=== PATIENT | female | born 1950 | race Hispanic/Latino ===

== ENCOUNTER 2024-06-23 16:45 | Emergency (ER) | payer MEDICARE ==
[~2024-06-23] VITALS: Ht 172.7 cm; Wt 59.0 kg
[2024-06-23 17:08] LABS: BASOPHILS # (AUTO) 0.07 K/uL (0.00-0.20); BASOPHILS % (AUTO) 0.7 % (0.0-5.0); EOSINOPHILS # (AUTO) 0.11 K/uL (0.00-0.70); EOSINOPHILS % (AUTO) 1.2 % (0.0-8.0); HEMATOCRIT 36.9 % (36-48); IMMATURE GRANULOCYTE ABSOLUTE 0.03 K/uL (0-1); LYMPHOCYTES # (AUTO) 1.9 K/uL (1.0-4.8); LYMPHOCYTES % (AUTO) 20.4 % (21.0-51.0); MEAN CORPUSCULAR HGB CONC 33.3 g/dL (32.0-36.0); MEAN CORPUSCULAR VOLUME 96.1 fL (79-99); MONOCYTES # (AUTO) 0.7 K/uL (0.1-1.0); MONOCYTES % (AUTO) 7.7 % (3.0-13.0); NEUTROPHILS # (AUTO) 6.7 K/uL (1.8-7.7); NEUTROPHILS % (AUTO) 69.7 % (40.0-77.0); PLATELET COUNT (AUTO) 175 K/uL (130-400); RED BLOOD CELL COUNT(AUTO) 3.84 MIL/uL (4.00-5.50); RED CELL DISTRIBUTION WIDTH 11.8 % (11.0-15.5); WHITE BLOOD COUNT (AUTO) 9.5 K/uL (4.8-10.8)
[2024-06-23 17:18] LABS: CREATININE 1.1 mg/dL (0.5-1.0)
--- NOTE | 2024-06-23 17:25 | HMCIMG ---
PORTABLE CHEST RADIOGRAPH INDICATION: Fatigue COMPARISON: None FINDINGS: Heart size is normal. The pulmonary vascularity and shelly appear normal. No abnormal pulmonary parenchymal opacity or consolidation identified. No significant pleural effusion noted. No pneumothorax detected. IMPRESSION: No radiographic evidence for any acute cardiopulmonary process.
[2024-06-23 17:28] LABS: RAPID GROUP A STREP negative (NEGATIVE)
[2024-06-23 17:39] LABS: COVID19 (SARS ANTIGEN RAPID) PRESUMPTIVE NEGATIVE (NEGATIVE); INFLUENZA TYPE A Negative For Type A (NEGATIVE); INFLUENZA TYPE B Negative For Type B (NEGATIVE)
--- NOTE | 2024-06-23 18:39 | ERN ---
General Chief Complaint: Other Problems Stated Complaint: DROWSY Time Seen by MD: 16:47 Source: patient History of Present Illness Initial Comments In his is a 73-year-old female coming in to be evaluated for generalized body weakness. Per at bedside patient has been having this more often for a of weeks and along with this patient was not eating as much Allergies: Coded Allergies: Penicillins (Unverified Allergy, Unknown, RASH, 05/30/24) Past Medical History Past Medical History: Dementia, High Cholesterol, Hypothyroid Past Surgical History: Cholecystectomy Results Laboratory and Microbiology Lab and Micro Result Laboratory Tests Test 06/23/24 17:02 06/23/24 17:11 White Blood Count 9.5 K/uL (4.8-10.8) Red Blood Count 3.84 MIL/uL (4.00-5.50) L Hemoglobin 12.3 g/dL (12.0-16.0) Hematocrit 36.9 % (36-48) Mean Corpuscular Volume 96.1 fL (79-99) Mean Corpuscular Hemoglobin 32.0 pg (27.0-33.0) Mean Corpuscular Hemoglobin Concent 33.3 g/dL (32.0-36.0) Red Cell Distribution Width 11.8 % (11.0-15.5) Platelet Count 175 K/uL (130-400) Mean Platelet Volume 10.7 fL (7.5-10.5) H Immature Granulocyte % (Auto) 0.3 % (0-1) Neutrophils (%) (Auto) 69.7 % (40.0-77.0) Lymphocytes (%) (Auto) 20.4 % (21.0-51.0) L Monocytes (%) (Auto) 7.7 % (3.0-13.0) Eosinophils (%) (Auto) 1.2 % (0.0-8.0) Basophils (%) (Auto) 0.7 % (0.0-5.0) Neutrophils # (Auto) 6.7 K/uL (1.8-7.7) Lymphocytes # (Auto) 1.9 K/uL (1.0-4.8) Monocytes # (Auto) 0.7 K/uL (0.1-1.0) Eosinophils # (Auto) 0.11 K/uL (0.00-0.70) Basophils # (Auto) 0.07 K/uL (0.00-0.20) Absolute Immature Granulocyte (auto 0.03 K/uL (0-1) Nucleated Red Blood Cells 0.0 % (0.0-0.19) Sodium Level 141 mmol/L (136-145) Potassium Level 4.0 mmol/L (3.5-5.1) Chloride Level 102 mmol/L (101-111) Carbon Dioxide Level 33 mmol/L (21-32) H Blood Urea Nitrogen 17 mg/dL (7-18) Creatinine 1.1 mg/dL (0.5-1.0) H Glomerular Filtration Rate Calc 53 mL/min (>90) Random Glucose 96 mg/dL (70-105) Total Calcium 9.5 mg/dL (8.5-10.1) Troponin I High Sensitivity 4 ng/L (4-50) Influenza Type A Antigen Negative For Type A Influenza Type B Antigen Negative For Type B SARS-CoV-2 Antigen (Rapid) PRESUMPTIVE NEGATIVE Group A Streptococcus Rapid negative (NEGATIVE) EKG/XRAY/US/CT/MRI EKG Comment 06/23/2024 time 5:08 p.m. Ventricular rate [address] wave elevation or depression MDM MDM: Differential diagnosis: Generalized body weakness, worsening dementia, Rationale: Tests considered and ordered secondary to shared decision making include: Previous outside records reviewed: Old ER visits. Risk of complication and/or morbidity or mortality of patient management: None Medications-Per medication reconciliation Need for hospitalization: Patient does not meet criteria for hospitalization. Need for emergency major/minor surgery: No There are no social concerns with this patient. Prescription drug management Prescriptions will include symptomatic care Patient's prior external medical records from other ER visits were reviewed by me as indicated. Prior testing and results from previous visits were reviewed. Prior tests were taken into account with medical decision making and resource utilization, independent historian/historians were used to obtain complete medical history. Patient was given a 2nd resuscitative bolus of fluid and once this fluid was completed a bladder scan showed 200 cc of urine but the patient could not void. Patient is up and about and walking and feels much better and would like to go home. Her feels the same way I cautioned him on the need to return if her condition deteriorated and to continue making sure she drinks plenty of fluids. Patient is stable for discharge. I independently interpreted the test that were performed, results were reviewed by me and considered findings on radiology if ordered. Medical management and examination interpretation discussions were had by me with other qualified healthcare professionals as indicated for the patient's care. ED Course Orders Procedure Category Date Status Time Cbc With Differential LAB 06/23/24 Complete 16:51 Basic Metabolic Panel LAB 06/23/24 Complete 16:51 Troponin I High LAB 06/23/24 Complete Sensitivity 16:51 12 Lead Ekg Tracing- EKG 06/23/24 Logged Technical 16:51 Covid19 (Sars Antigen LAB 06/23/24 Complete Rapid) 16:51 Influenza Type A & B, LAB 06/23/24 Complete Rapid 16:51 Rapid (Group A Strep) LAB 06/23/24 Complete 16:51 Chest 1vw RAD 06/23/24 Resulted 16:51 Urinalysis LAB 06/23/24 Logged W/Microscopic 17:55 0.9%Nacl 1000ml (Ns PHA 06/23/24 Complete 1000ml) 19:00 Bladder Scan CPOE 06/23/24 Transmitted 20:10 0.9%Nacl 1000ml (Ns PHA 06/23/24 In Process 1000ml) 20:30 Current Medications Medications (Trade) Dose Ordered Sig/Jean-Pierre Route PRN Reason Start Time Stop Time Status Last Admin Dose Admin Sodium Chloride 1,000 ml @ 0 mls/hr ONCE ONCE IV 06/23/24 19:00 06/23/24 19:01 DC 06/23/24 19:07 Sodium Chloride 1,278 ml @ 426 mls/hr ONCE ONCE IV 06/23/24 20:30 06/23/24 23:29 06/23/24 20:30 Vital Signs Date Time Temp Pulse Resp B/P (MAP) Pulse Ox O2 Delivery O2 Flow Rate FiO2 06/23/24 21:27 98.8 64 16 127/68 73 Room Air* 0 21 06/23/24 19:26 98.8 66 16 126/63 73 Room Air* 0 06/23/24 18:34 98.2 64 16 116/47 73 Room Air* 0 21 06/23/24 16:47 97.9 77 16 124/72 98 Room Air DX & DISP Disposition: Discharge Departure Impression: Primary Impression: Dehydration Condition: Stable Referrals: NONE (PCP) MARIAN WALTER MD Jun 23, 2024 18:39 JUWAN STEVENSON MD Jun 23, 2024 22:38
[2024-06-23] MEDS: 0.9%NACL 1000ML 1,000 ML IV ONE (19:07)
--- NOTE | 2024-06-23 19:24 | NUR ---
TOOK OVER PATIENT AT THIS TIME
--- NOTE | 2024-06-23 21:27 | NUR ---
BLADDER SCAN DONE, 221CC NOTED, REPORTED TO ED DOCTOR
[2024-06-23 22:48] VITALS: BP 120/78; PULSE 66; RESP 16; TEMP 98.7; O2SAT 73
--- NOTE | 2024-06-24 08:00 | EKG ---
[facility] Test Date: 2024-06-23 Test Time: 17:08:31 Pat Name: VINCE GARCIA Department: ED Room: Gender: F Project [employer] Manager: [id number] : 1950 Requested By: NIC WEAVER Order Number: [id number] Reading MD: [email or web address] Price Measurements Intervals [place] Rate: 69 P: 15 ME: 125 QRS: 22 QRSD: 86 T: 58 QT: 383 QTc: 409 Interpretive Statements Sinus rhythm No previous ECG available for comparison Electronically Signed On 06-25-2024 14:40:56 CDT by Aleksander Price Please click the below link to view image of tracing.
== END 2024-06-23 22:51 | disposition home or self-care (01) ==
LOC: EDH 16:45
DX: E86.0 Dehydration (principal); E03.9 Hypothyroidism, unspecified; E78.00 Pure hypercholesterolemia, unspecified; F03.90 Unspecified dementia, unspecified severity, without behavioral disturbance, psychotic disturbance, mood disturbance, and anxiety; Z88.0 Allergy status to penicillin; Z90.49 Acquired absence of other specified parts of digestive tract; Z20.822 Contact with and (suspected) exposure to COVID-19
CPT/HCPCS: 99285; 96360; 71045; 96361; 87426; 84484; 80048; 85025; 87880; 87804 ×2; 36415; 93005; J7030; 99284